=== PATIENT | female | born 1970 | race Caucasian/White ===

== ENCOUNTER 2025-05-20 12:23 | Emergency (ER) | payer OTHER ==
[~2025-05-20] VITALS: Ht 157.5 cm; Wt 110.0 kg
[2025-05-20 12:28] VITALS: TEMP 36.9; O2SAT 99
[2025-05-20 13:04] LABS: BASOPHILS % 0.7 % (0.0-2.0); EOSINOPHILS % 3.7 % (0.0-5.0); HEMATOCRIT. 39.2 % (36.0-48.0); HEMOGLOBIN. 12.9 g/dL (12.0-16.0); LYMPHOCYTES % 40.9 % (20.0-50.0); MEAN CORPUSCULAR HEMOGLOBIN 29.5 pg (28.0-32.0); MEAN CORPUSCULAR HGB CONC 32.9 g/dL (31.0-37.0); MEAN CORPUSCULAR VOLUME 89.7 fL (81.0-99.0); MEAN PLATELET VOLUME 10.8 fl (7.4-10.4); MONOCYTES % 7.6 % (2.0-8.0); NEUTROPHILS % 47.1 % (40.0-76.0); PLATELET 199 x1000/uL (130-400); RED BLOOD CELL COUNT 4.37 mill/uL (4.2-5.4); RED CELL DISTRIBUTION WIDTH 15.6 % (11.6-14.6); WHITE BLOOD COUNT 8.9 x1000/uL (4.5-11.0)
[2025-05-20 13:15] LABS: CHLORIDE 107 mEq/L (98-107); POTASSIUM 3.9 mEq/L (3.5-5.1); SODIUM 141 mEq/L (136-145)
[2025-05-20 13:16] LABS: CALCIUM 10.3 mg/dL (8.7-10.4); CARBON DIOXIDE 26 mEq/L (21-32)
[2025-05-20] MEDS ORDERED: METF-414 MT (13:19)
[2025-05-20 13:21] LABS: CREATININE 0.8 mg/dL (0.6-1.0); GLUCOSE 122 mg/dL (70-105); UREA NITROGEN BLOOD 12 mg/dL (9-23)
[2025-05-20 13:31] VITALS: BP 127/80; PULSE 80; RESP 18; O2SAT 96
== END 2025-05-20 13:32 | disposition home or self-care (01) ==
LOC: ER 12:23
DX: E11.65 Type 2 diabetes mellitus with hyperglycemia (principal); I10 Essential (primary) hypertension; Z76.0 Encounter for issue of repeat prescription; Z79.84 Long term (current) use of oral hypoglycemic drugs
CPT/HCPCS: 36415; 80048; 82962; 85025; 99283